=== PATIENT | male | born 1990 | race Two or more races ===

== ENCOUNTER → 2021-10-20 | Emergency (ER) | payer SELFPAY ==
[~2021-10-20] VITALS: Ht 167.6 cm; Wt 63.5 kg
--- NOTE | 2021-10-20 22:55 | NUR ---
[place] FROM [facility], FOUND IN BATHROOM WITH "PIPE AT SIDE". UTO ANY HISTORY FROM PATIENT. PLACED IN BED 15 ON MONITOR.
--- NOTE | 2021-10-20 23:00 | NUR ---
urine sent to lab
[2021-10-20 23:20] LABS: BASOPHILS # (AUTO) 0.1 K/uL (0.0-0.2); BASOPHILS % (AUTO) 0.6 % (0.0-2.0); EOSINOPHILS % (AUTO) 3.5 % (0.0-6.0); HEMATOCRIT 40 % (39-51); HEMOGLOBIN 13.2 g/dL (13.5-17.5); LYMPHOCYTES # (AUTO) 4.1 K/uL (0.8-4.8); LYMPHOCYTES % (AUTO) 49.3 % (20.0-44.0); MEAN CORPUSCULAR HGB CONC 33 g/dl (31.0-36.0); MEAN CORPUSCULAR VOLUME 82 fL (80-96); MONOCYTES # (AUTO) 0.5 K/uL (0.1-1.30); MONOCYTES % (AUTO) 6.4 % (2.0-12.0); NEUTROPHILS # (AUTO) 3.4 K/uL (1.8-8.9); NEUTROPHILS % (AUTO) 40.2 % (43.0-81.0); PLATELET COUNT (AUTO) 242 K/uL (150-450); RED BLOOD CELL COUNT(AUTO) 4.83 MIL/uL (4.5-6.0); WHITE BLOOD COUNT (AUTO) 8.3 K/uL (4.3-11.0)
[2021-10-20 23:29] LABS: BILIRUBIN,URINE SMALL (NEGATIVE); COLOR,URINE YELLOW (YELLOW); LEUKOCYTE ESTERASE ,URINE NEGATIVE (NEGATIVE); NITRITE, URINE NEGATIVE (NEGATIVE); PH,URINE 5.5 (5.0-8.0); PROTEIN,URINE NEGATIVE (NEGATIVE); UGLUCOSE NEGATIVE (NEGATIVE); UROBILINOGEN,URINE 0.2 EU/dL (0.2)
[2021-10-20 23:36] LABS: RBC,URINE 51-80 /HPF (0-2)
[2021-10-20 23:37] LABS: BACTERIA,URINE Few /HPF (None Seen); SQUAMOUS EPITHELIAL CELL,UR Few /HPF (None Seen)
--- NOTE | 2021-10-20 23:50 | NUR ---
PT RETURNED FROM CT
[2021-10-21] LABS: CALCIUM, SERUM 8.2 mg/dL (8.5-10.1); CARBON DIOXIDE 24 mmol/L (21-32); CHLORIDE 103 mmol/L (98-107); CREATININE 1.2 mg/dL (0.6-1.3); GLUCOSE 83 mg/dL (74-106); POTASSIUM 3.2 mmol/L (3.5-5.1); SODIUM SERUM 142 mmol/L (136-145); UREA NITROGEN, BLOOD 16 mg/dL (7-18)
[2021-10-21 00:04] LABS: ALANINE AMINOTRANSFERASE 78 U/L (12-78); ALBUMIN 3.7 g/dL (3.4-5.0); ALCOHOL, BLOOD 65 mg/dL (0-0); ALKALINE PHOSPHATASE 45 U/L (46-116); ASPARTATE AMINOTRANSFERASE 50 U/L (15-37); BILIRUBIN,DIRECT 0.2 mg/dL (0.0-0.2); BILIRUBIN,TOTAL 0.6 mg/dL (0.2-1.0); TOTAL PROTEIN, SERUM 6.8 g/dL (6.4-8.2)
[2021-10-21 00:05] LABS: ACETAMINOPHEN < 2 ug/ml (10-30)
--- NOTE | 2021-10-21 07:00 | NUR ---
PATIENT DISCHARGED HOME WITH A STEADY GAIT. PATIENT THREATENING STAFF WHILE WALKING OUT OF THE HOSPITAL. DISCHARGE PAPERS GIVEN TO PATIENT.
[2021-10-21 07:01] VITALS: BP 112/72
== END | disposition home or self-care (01) ==
LOC: ER 22:44 → EDBD 22:44
DX: T50.901A Poisoning by unspecified drugs, medicaments and biological substances, accidental (unintentional), initial encounter (principal); F19.10 Other psychoactive substance abuse, uncomplicated; F10.129 Alcohol abuse with intoxication, unspecified; Y90.2 Blood alcohol level of 40-59 mg/100 ml; Y92.89 Other specified places as the place of occurrence of the external cause
CPT/HCPCS: 36415; 70450-TC; 80048-TC; 80076-TC; 81001; 85025-TC; G0480